=== PATIENT | male | born 1975 | race Hispanic/Latino ===

== ENCOUNTER 2025-01-20 16:24 | Emergency (ER) | payer OTHER, SELFPAY ==
--- NOTE | 2025-01-20 17:28 | RAD REPORT ---
EXAMINATION: C Spine Wo Con CLINICAL INDICATION: Male, 50 years old. fall;Pain TECHNIQUE: Axial CT images through the cervical spine were obtained without intravenous contrast. Sag ittal and coronal reformatted images were created from the data set. One or more of the following dose reduction techniques were used: Automated exposure control, adjustment of the mA and/or kV accor ding to patient size, and/or iterative reconstruction. Unless otherwise specified, incidental findings do not require dedicated imaging follow-up. [id number]. COMPARISON: No prior exam. FINDINGS: ALIGNMENT: Loss of the normal cervical lordosis. BONE: Vertebral body heights are maintained. No aggressive osseous lesions. DEGENERATIVE: Evidence of bilateral neural foraminal narrowing which is most pronounced on the left a t C4-5 and C5-6. Mild to moderate central spinal stenosis is present at C4-5 and C5-6. SOFT TISSUE: No significant abnormalities in the soft tissue of the neck. The visualized lung apices are clear. IMPRESSION: No acute cervical spine abnormalities.
--- NOTE | 2025-01-20 17:38 | RAD REPORT ---
EXAMINATION: Humerus Left VIEWS: Two views CLINICAL INDICATION: Male, 50 years old. PAIN COMPARISON: No prior exam. IMPRESSION: No acute fracture of the left humerus.
--- NOTE | 2025-01-20 17:38 | RAD REPORT ---
EXAMINATION: Shoulder Left 2+ Views CLINICAL INDICATION: Male, 50 years old. PAIN COMPARISON: No prior exam. FINDINGS: No acute fracture. No malalignment/dislocation. Moderate left AC joint degenerative changes with subacromial spurring. Other: n/a IMPRESSION: No acute osseous abnormality.
--- NOTE | 2025-01-20 18:00 | EDPHYS ---
Physician Documentation [facility] Name: Blas Mejia Age: 50 yrs Sex: Male : 1975 Arrival Date: 01/20/2025 Time: 16:24 Bed DX3 Private MD: ED Physician Иван Dozier HPI: 01/20 17:11 This 50 yrs old Male presents to ER via Unassigned with complaints of Shoulder rn Pain. 17:11 The patient or guardian complains of an injury, pain. left shoulder and left clavicle. rn 17:11 Onset: The symptoms/episode began/occurred 2 day(s) ago. Modifying factors: the rn symptoms are alleviated by nothing. The symptoms are aggravated by movement, rotation of arm. Severity of symptoms: At their worst the symptoms were moderate, in the emergency department the symptoms are unchanged. The patient has not experienced similar symptoms in the past. Patient reports fall 2 days ago and struck left side of neck and shoulder. Patient reports pain to left shoulder mainly and collarbone as well as mild neck pain. No weakness. No other injury. No head injury.. Historical: - Allergies: 17:39 No Known Allergies; ap3 - PMHx: 17:39 Diabetes mellitus; Hypertensive disorder; Hypercholesterolemia; ap3 - Immunization history:: Client reports receiving the 2nd dose of the Covid vaccine, Flu vaccine is up to date. - Infectious Disease History:: Denies. - Family history:: not pertinent. - Social history:: Smoking status: Patient reports the use of cigarette tobacco products, denies chronic smoking, but will smoke occasionally. - Hospitalizations: : No recent hospitalization is reported. ROS: 17:11 Constitutional: Negative for fever, chills, and weight loss, Neck: Negative for rn swelling Cardiovascular: Negative for chest pain, palpitations, and edema, Respiratory: Negative for shortness of breath, cough, wheezing, and pleuritic chest pain, Abdomen/GI: Negative for abdominal pain, nausea, vomiting, diarrhea, and constipation, MS/Extremity: Positive for left shoulder injury and pain Neuro: Negative for headache, weakness, numbness, tingling, and seizure, Exam: 17:11 Constitutional: This is a well developed, well nourished patient who is awake, alert, rn and in no acute distress. Ambulatory to room without difficulty or assistance Head/Face: Normocephalic, atraumatic. Neck: No midline cervical tenderness Chest/axilla: Mild tenderness along the left clavicle, midshaft. No ecchymosis. No puncture. Cardiovascular: Regular rate and rhythm. No pulse deficits. MS/ Extremity: Pulses equal, no cyanosis. Neurovascular intact. Mild painful range of motion left shoulder and tenderness along the left clavicle. No gross deformity. Neuro: Awake and alert, GCS 15 Vital Signs: 17:37 BP 144 / 98; Pulse 76; Resp 18; Temp 98.1(O); Pulse Ox 100% ; Weight 120.2 kg; Pain ap3 10/10; 17:37 Pain Scale: Adult ap3 MDM: 16:41 Medical Screening Exam initiated rn 17:51 Differential diagnosis: humeral head fracture, glenoid fracture, Clavicular fracture, rn cervical fracture, contusion, sprain. Data reviewed: vital signs, nurses notes, radiologic studies, CT scan, plain films, and as a result, I will discharge patient. 17:58 Counseling: I had a detailed discussion with the patient and/or guardian regarding the rn historical points, exam findings, and any diagnostic results supporting the discharge/admit diagnosis, radiology results, the need for outpatient follow up, to return to the emergency department if symptoms worsen or persist or if there are any questions or concerns that arise at home. Special discussion: I discussed with the patient/guardian in detail that at this point there is no indication for admission to the hospital. It is understood, however, that if the symptoms persist or worsen the patient needs to return immediately for re-evaluation. 17:58 Special discussion: Further emergent ED testing is not indicated at this point in time. rn I discussed with the patient/guardian in detail the need to arrange with the PCP or specialist further outpatient testing, MRI. 01/20 17:00 Order name: CT C Spine; Complete Time: 17:50 rn 01/20 17:00 Order name: XRAY Shoulder LEFT 2 view; Complete Time: 17:50 rn 01/20 17:00 Order name: XRAY Humerus LEFT; Complete Time: 17:50 rn Administered Medications: No medications were administered Disposition Summary: 01/20/25 17:59 Discharge Ordered Notes: Location: Home rn Problem: new rn Symptoms: are unchanged rn Condition: Stable rn Diagnosis - Contusion of left shoulder rn Followup: rn - With: Colt Sparks MD - When: As needed - Reason: Recheck today's complaints, Re-evaluation by your physician Discharge Instructions: - Discharge Summary Sheet rn - Contusion rn - Shoulder Pain rn Forms: - Medication Reconciliation Form rn - Antibiotic real estate internship - Prescription Opioid Use rn - Patient Portal Instructions rn - Leadership Thank You Letter rn Signatures: Dispatcher [employer] Иван Lara MD MD rn Prokisch, Amanda, RN RN ap3
--- NOTE | 2025-01-20 18:00 | ER ---
Nurse's Notes [facility] Name: Blas Mejia Age: 50 yrs Sex: Male : 1975 Arrival Date: 01/20/2025 Time: 16:24 Bed DX3 Private MD: Diagnosis: Contusion of left shoulder Presentation: 01/20 17:37 Chief complaint: Patient states: he fell last week onto his left arm, and is having ap3 continued pain on his left shoulder and into his left neck. patient currently rates his pain as a 10/10 on the pain scale. Coronavirus screen: At this time, the client does not indicate any symptoms associated with coronavirus-19. Ebola Screen: No symptoms or risks identified at this time. Initial Sepsis Screen: Does the patient meet any 2 criteria? No. Patient's initial sepsis screen is negative. Does the patient have a suspected source of infection? No. Patient's initial sepsis screen is negative. Risk Assessment: Do you want to hurt yourself or someone else? Patient reports no desire to harm self or others. Onset of symptoms was January 15, 2025. 17:37 Method Of Arrival: Ambulatory ap3 17:37 Acuity: MAKEDA 4 ap3 Triage Assessment: 17:39 General: Appears uncomfortable, Behavior is calm, cooperative, appropriate for age. ap3 Pain: Complains of pain in left clavicle and left shoulder Pain currently is 10 out of 10 on a pain scale. Neuro: Level of Consciousness is awake, alert, obeys commands, Oriented to person, place, time, situation, Appropriate for age. Cardiovascular: Patient's skin is warm and dry. Respiratory: Airway is patent Respiratory effort is even, unlabored, Respiratory pattern is regular, symmetrical. Historical: - Allergies: 17:39 No Known Allergies; ap3 - PMHx: 17:39 Diabetes mellitus; Hypertensive disorder; Hypercholesterolemia; ap3 - Immunization history:: Client reports receiving the 2nd dose of the Covid vaccine, Flu vaccine is up to date. - Infectious Disease History:: Denies. - Family history:: not pertinent. - Social history:: Smoking status: Patient reports the use of cigarette tobacco products, denies chronic smoking, but will smoke occasionally. - Hospitalizations: : No recent hospitalization is reported. Screenin:40 [facility] ED Fall Risk Assessment (Adult) History of falling in the last 3 months, ap3 including since admission Yes- single mechanical fall (1 pt) Confusion or Disorientation No (0 pts) Intoxicated or Sedated No (0 pts) Impaired Gait No (0 pts) Mobility Assist Device Used No (0 pt) Altered Elimination No (0 pt) Score/Fall Risk Level 0 - 2 = Low Risk Oriented to surroundings, Maintained a safe environment, Educated pt \T\ family on fall prevention, incl call for assistance when getting out of bed, Assessed \T\ reinforced patient's understanding of fall precautions, Hourly rounding (assess needs \T\ fall precautionary measures) done, Used ambulatory aids as needed (educated on \T\ assisted with). Abuse screen: Denies threats or abuse. Nutritional screening: No deficits noted. Tuberculosis screening: No symptoms or risk factors identified. Vital Signs: 17:37 BP 144 / 98; Pulse 76; Resp 18; Temp 98.1(O); Pulse Ox 100% ; Weight 120.2 kg; Pain ap3 10/10; 17:37 Pain Scale: Adult ap3 ED Course: 16:27 Patient arrived in ED. mr 16:41 Иван Dozier MD is Attending Physician. rn 17:07 CT C Spine In Process Unspecified. EDMS 17:33 XRAY Shoulder LEFT 2 view In Process Unspecified. EDMS 17:33 XRAY Humerus LEFT In Process Unspecified. EDMS 17:39 Triage completed. ap3 17:40 Arm band placed on right wrist. ap3 17:59 Colt Sparks MD is Referral Physician. rn 18:43 Patient has correct armband on for positive identification. Provided Education on: jl7 discharge. 18:43 No provider procedures requiring assistance completed. Patient did not have IV access jl7 during this emergency room visit. Administered Medications: No medications were administered Medication: 18:43 VIS not applicable for this client. jl7 Outcome: 17:59 Discharge ordered by . rn 18:43 Discharged to home ambulatory, jl7 18:43 Condition: stable 18:43 Discharge instructions given to patient, Instructed on discharge instructions, follow up and referral plans. Demonstrated understanding of instructions, follow-up care, 18:43 Patient left the ED. jl7 Signatures: Dispatcher [employer] EDKY Valarie Bowers, Reg Reg mr Иван Dozier MD MD rn Leal, Jahala, RN RN jl7 Marimar Inman, RN RN ap3
[2025-01-20 19:23] VITALS: BP 144/98; TEMP 98.1; O2SAT 100
== END 2025-01-20 18:43 | disposition home or self-care (01) ==
LOC: ER 16:24
DX: S40.012A Contusion of left shoulder, initial encounter (principal); W18.30XA Fall on same level, unspecified, initial encounter; F17.210 Nicotine dependence, cigarettes, uncomplicated
CPT/HCPCS: 72125; 99282